=== PATIENT | female | born 1985 | race Caucasian/White ===

== ENCOUNTER 2023-03-19 08:57 | Emergency (ER) | payer MEDICAID ==
[~2023-03-19] VITALS: Ht 165.1 cm; Wt 64.8 kg
[~2023-03-19 08:57] MED LIST: ADV50250 IH; IPRA3AMP19 IH; LEVA15HF4 IH; LORA0.5T PO; PREN1TAB77 PO
[2023-03-19 09:18] VITALS: BP 149/102; PULSE 81; RESP 18; TEMP 98.3; O2SAT 98
[2023-03-19] MEDS ORDERED: ondansetron 4mg rapidly disintigrating tab PO ONE (09:35)
[2023-03-19] MEDS ORDERED: ketorolac trometh inj. 60 MG/2 ML VIAL IM ONE (09:35)
[2023-03-19] MEDS ORDERED: ONDA4TAB12 PO (09:53)
== END 2023-03-19 10:19 | disposition home or self-care (01) ==
LOC: ER 08:57
DX: G43.909 Migraine, unspecified, not intractable, without status migrainosus (principal); Z88.0 Allergy status to penicillin; Z88.8 Allergy status to other drugs, medicaments and biological substances; Z79.899 Other long term (current) drug therapy; Z79.1 Long term (current) use of non-steroidal anti-inflammatories (NSAID); Z79.2 Long term (current) use of antibiotics; Z56.0 Unemployment, unspecified
CPT/HCPCS: 96372; 99283; J1885

== ENCOUNTER 2023-07-10 07:29 | Emergency (ER) | payer MEDICAID ==
[~2023-07-10] VITALS: Ht 160 cm; Wt 67.2 kg
[~2023-07-10 07:29] MED LIST changes: +ONDA4TAB12 PO
[2023-07-10] MEDS ORDERED: GENT5DRO22 EACHEYE (08:36)
[2023-07-10 08:54] VITALS: BP 108/74; PULSE 76; RESP 18; TEMP 98.2; O2SAT 97
== END 2023-07-10 08:56 | disposition home or self-care (01) ==
LOC: ER 07:29
DX: H10.9 Unspecified conjunctivitis (principal); G43.909 Migraine, unspecified, not intractable, without status migrainosus; Z56.0 Unemployment, unspecified; Z88.0 Allergy status to penicillin; Z88.8 Allergy status to other drugs, medicaments and biological substances; Z79.899 Other long term (current) drug therapy
CPT/HCPCS: 99283

== ENCOUNTER 2025-02-10 22:37 | Emergency (ER) | payer MEDICAID ==
[~2025-02-10] VITALS: Ht 165.1 cm; Wt 63.2 kg
[~2025-02-10 22:37] MED LIST changes: +GEN0.3OS EACHEYE; +ONDA-243 PO; -ONDA4TAB12 PO
--- NOTE | 2025-02-11 00:38 | RADIOLOGY REPORT ---
EXAM: CT CT HEAD INDICATION: EYE PAIN TECHNIQUE: CT of the head without intravenous contrast. Radiation Dose Information: CT Dose: CTDI volume is 45.72 mGy. Dose-length product is 748.97 mGy*cm The dose indicators for CT are the volume Computed Tomography (CT) Dose Index (CTDIvol) and the Dose Length Product (DLP), and are measured in units of mGy and mGy-cm, respectively. These indicators are not patient dose, but values generated from the CT scanner acquisition factors. The report includes radiation exposure data for exposures received during this examination. COMPARISON: None FINDINGS: The evaluation is mildly degraded by motion artifact. The cerebral parenchyma appears to be normal configuration and attenuation. The ventricles, cisterns , and sulci appear age-appropriate. There is no evidence for acute territorial infarct, hemorrhage, or mass effect. The orbits are normal. The visualized paranasal sinuses and mastoid air cells are clear. The soft t issues and osseous structures appear within normal limits. IMPRESSION: 1. No acute territorial infarct, intracranial hemorrhage, or mass effect. If clinical symptoms persi st, MRI may be beneficial in further assessment.
--- NOTE | 2025-02-11 02:35 | Physician Documentation ---
History of Present Illness ~ Chief Complaint: Eye Pain Stated Complaint: EYE PAIN Time Seen by MD: 02:33 OK to notify your PCP?: Yes Primary Medical Doctor: EVANS RAZA Source: patient, RN/, RN notes reviewed, old records Mode of Arrival: POV Exam Limitations: no limitations HPI 39 year old female with a history of eye infections presents to the emergency room seen in bed 09 for complaints of pain in her left eye that began 3 days ago. She states that her left eye feels very uncomfortable as it feels like there is something in it and it is watering uncontrollably. Her left pupil is larger than her right and she states that her vision is incredibly blurry. Patient denies any other associated symptoms at this time. Patient denies any other alleviating or exacerbating factors. Medication Reconciliation Allergies: Coded Allergies: Penicillins (Unverified Allergy, Unknown, 02/10/25) methylergonovine maleate (Unverified Allergy, Unknown, 02/10/25) Scheduled Fluticasone/Salmeterol* (Advair 250-50 Diskus*), 1 INH IH DAILY, (Reported) Gentamicin Sulfate (Gentak), 1 DROP EACHEYE Q6H Ipratropium/Albuterol Sulfate (Duoneb 2.5-0.5 Mg/3 Ml Soln), 3 ML IH PRN, (Reported) Levalbuterol Tartrate* (Xopenex Inhaler*), 2 PUFF IH PRN, (Reported) Lorazepam* (Ativan*), 0.5 MG PO PRN, (Reported) Vits W-Ca,Fe,Fa(<1MG) ( Formula), 1 EACH PO DAILY, (Reported) Scheduled PRN ONDANSETRON ODT 4mg tablet (Ondansetron Odt), 1 TABLET PO Q6H PRN for nausea/vomiting Past Medical History Past Medical History: Migraine Past Surgical History: no surgical history Smoking Status: Unknown if ever smoked Alcohol Use: None Lives with: Family Lives In: Home Occupation: unemployed Review of Systems All Other Systems at this time: Reviewed and Negative ROS As stated above in the HPI, otherwise all systems are reviewed and negative. Physical Exam Vital Signs: RN Vital Signs have been reviewed: Yes, Temperature: 98.0, Heart Rate: 86, Respiratory Rate: 16, BP: 105/61, Pulse Oximetry: 97, Weight: 63.180 Oxygen Flow Rate: 0 Pulse Oximetry Reflects: adequate oxygenation Physical Exam General: The patient is well developed, well nourished, nontoxic appearing and is in no acute distress. Skin: [place], warm and dry with no rashes. HEENT: Pupils are reactive, left pupil is 4mm while right is 2mm. Head was normocephalic and atraumatic. Eyes - pupils equal, round, reactive to light and accommodation. Extraocular movements were intact. Conjunctivae were nonicteri c. Ears - bilateral tympanic membranes were normal. The mouth and oropharynx were clear with moist mucous membranes. There were no pharyngeal exudates or erythema. Neck: Supple and nontender. There was no jugular venous distention, lymphadenopathy, thyromegaly or masses. Chest: Clear to auscultation bilaterally without wheezes, rales or rhonchi. No accessory muscle use. No dullness to percussion. Heart: Rate regular and rhythmic. S1, S2. No murmurs. Palpation of the chest wall was normal. No rubs or thrills. Abdomen: Soft, nontender and nondistended. Positive bowel sounds. No guarding or rebound. No hepatosplenomegaly or palpable masses. Extremities: No cyanosis, clubbing or edema. The patient moves all extremities. Pulses were equal and symmetric. Neurologic: Cranial nerves II-XII were intact. Sensation was intact to light touch throughout. Motor strength was 5/5 in all four extremities. Deep tendon reflexes were intact in both upper and lower extremities. Psychologic: The patient was oriented to person, place and time. The patient demonstrated appropriate judgement and insight. Progress Results/Orders Results/Orders Vital Signs 02/10/25 02/10/25 02/11/25 02/11/25 22:43 23:01 00:27 02:09 Temp 98.0 Pulse 79 90 86 Resp 18 16 B/P (MAP) 152/85 105/68 (80) 105/61 (76) Pulse Ox 98 98 97 O2 Flow Rate 0 0 02/11/25 02/11/25 05:46 06:43 Pulse 82 76 Resp 18 16 B/P (MAP) 109/64 (79) 109/73 (85) Pulse Ox 97 96 O2 Flow Rate 0 0 Laboratory Tests Test 02/11/25 07:04 White Blood Count 6.5 Red Blood Count 4.46 Hemoglobin 12.8 Hematocrit 37.2 Mean Corpuscular Volume 83.4 Mean Corpuscular Hemoglobin 28.6 Mean Corpuscular Hemoglobin Concent 34.3 Red Cell Distribution Width 13.4 Platelet Count 227 Mean Platelet Volume 8.2 Neutrophils (%) (Auto) 56.9 Lymphocytes (%) (Auto) 28.5 Monocytes (%) (Auto) 9.4 Eosinophils (%) (Auto) 4.5 Basophils (%) (Auto) 0.7 Neutrophils # (Auto) 3.7 Lymphocytes # (Auto) 1.8 Monocytes # (Auto) 0.6 Eosinophils # (Auto) 0.3 Basophils # (Auto) 0.0 CBC Comment Erythrocyte Sedimentation Rate 9 Sodium Level 140 Potassium Level 3.7 Chloride Level 105 Carbon Dioxide Level 25.9 Anion Gap 9 Blood Urea Nitrogen 26 H Creatinine 0.80 Estimated GFR/1.73 m2 79 BUN/Creatinine Ratio 32.5 H Glucose Level 102 Calcium Level 8.7 Magnesium Level 2.3 Albumin 4.0 Procalcitonin < 0.05 Chemistry Comments EKG/XRAY/CT/US/VASC/MRI CT : Impression EXAM: CT CT HEAD INDICATION: EYE PAIN TECHNIQUE: CT of the head without intravenous contrast. Radiation Dose Information: CT Dose: CTDI volume is 45.72 mGy. Dose-length product is 748.97 mGy*cm The dose indicators for CT are the volume Computed Tomography (CT) Dose Index (CTDIvol) and the Dose Length Product (DLP), and are measured in units of mGy and mGy-cm, respectively. These indicators are not patient dose, but values generated from the CT scanner acquisition factors. The report includes radiation exposure data for exposures received during this examination. COMPARISON: None FINDINGS: The evaluation is mildly degraded by motion artifact. The cerebral parenchyma appears to be normal configuration and attenuation. The ventricles, cisterns, and sulci appear age-appropriate. There is no evidence for acute territorial infarct, hemorrhage, or mass effect. The orbits are normal. The visualized paranasal sinuses and mastoid air cells are clear. The soft tissues and osseous structures appear within normal limits. IMPRESSION: 1. No acute territorial infarct, intracranial hemorrhage, or mass effect. If clinical symptoms persist, MRI may be beneficial in further assessment. Electronically Signed by:NIKHIL TAYLOR MD Date & Time: 02/11/25 0036 Medical Decision Making Findings Patient signed out to me by Dr. Geronimo to follow up on CT results, possible op hthalmology consult for unilateral L eye pain, blurry vision, and anisocoria. I reexamined the patient and see no specific findings on fluorescein/sharma lamp exam (no uptake), ophthalmoscope (normal disc, cup, vessels), slit lamp (no flare, no floaters, no corneal defects). At this time I am diagnosing this patient with a uveitis/iritis of unclear etiology, though other possible di agnoses include optic neuritis. Will Rx predforte and have patient follow up with outpatient ophthalmology. Return precautions are discussed. Additional Comment Ddx = uveitis, iritis, optic neuritis, corneal abrasion or foreign bodies, glaucoma Departure Disposition: HOME / SELF CARE / HOMELESS Impression: Primary Impression: Anisocoria Condition: Stable Discharge Instructions: Medical Screening Exam Referrals: NO PRIMARY CARE PROVIDER (PCP) Prescriptions Prednisolone Acetate/Pf (Prednisolone Acet 1% Eye Drop) 1 % Drops.susp 1 DROP LEFTEYE BID for 5 Days, #5 ML 0 Refills Prov: AMITA LAW MD 02/11/25 Education Educated: Patient Educated regarding: diagnosis, treatment, prognosis, need for follow up Signature Scribe Signature: Scribed for Oswaldo Geronimo MD by Claudio Talbert . 02/11/25 02:51 Attestation: The note accurately reflects work and decisions made by me.Oswaldo Geronimo MD 02/11/25 02:35 OSWALDO GERONIMO MD Feb 11, 2025 02:35 CLAUDIO LEE Feb 11, 2025 02:51 AMITA LAW MD Feb 11, 2025 08:56
[2025-02-11] MEDS: pilocarpine 2% ophthalmic drops 15ml LEFTEYE ONE (03:00)
[2025-02-11] MEDS: proparacaine 0.5% ophthalmic drops 15ml LEFTEYE ONE (03:05)
[2025-02-11 07:24] LABS: BASOPHILS % (AUTO) 0.7 % (0-1); EOSINOPHILS # (AUTO) 0.3 X10'3 (0-0.9); EOSINOPHILS % (AUTO) 4.5 % (0-6); HEMATOCRIT 37.2 % (35.0-45.0); HEMOGLOBIN 12.8 g/dl (12.0-16.0); LYMPHOCYTES # (AUTO) 1.8 X10'3 (1.1-4.8); LYMPHOCYTES % (AUTO) 28.5 % (21-51); MEAN CORPUSCULAR HEMOGLOBIN 28.6 PG (27.0-31.0); MEAN CORPUSCULAR HGB CONC 34.3 g/dL (33.0-36.5); MEAN CORPUSCULAR VOLUME 83.4 FL (78-98); MEAN PLATELET VOLUME 8.2 FL (7.4-10.4); MONOCYTES # (AUTO) 0.6 X10'3 (0-0.9); MONOCYTES % (AUTO) 9.4 % (2-12); NEUTROPHILS # (AUTO) 3.7 X10'3 (1.8-7.7); NEUTROPHILS % (AUTO) 56.9 % (42-75); PLATELET COUNT 227 X10'3 (140-440); RED BLOOD COUNT 4.46 X10'6 (4.20-5.60); RED CELL DISTRIBUTION WIDTH 13.4 % (11.5-14.5); WHITE BLOOD COUNT 6.5 X10'3 (4.5-11.0)
[2025-02-11 07:36] LABS: ANION GAP 9 (8-16); BLOOD UREA NITROGEN 26 MG/DL (7-18); BUN/CREATININE RATIO 32.5 (10.0-20.0); CALCIUM 8.7 MG/DL (8.5-10.1); CHLORIDE 105 MMOL/L (99-107); GLUCOSE 102 MG/DL (70-104); MAGNESIUM 2.3 MG/DL (1.5-2.4); POTASSIUM 3.7 MMOL/L (3.5-5.1); SODIUM 140 MMOL/L (135-145); TOTAL CARBON DIOXIDE 25.9 MMOL/L (24-32); eCRCL 84 ML/MIN; eGFR 79 ML/MIN
[2025-02-11] MEDS ORDERED: PRED5DRO23 LEFTEYE (08:56)
[2025-02-11 09:05] VITALS: BP 99/63; PULSE 82; RESP 16; TEMP 98; O2SAT 98
== END 2025-02-11 09:06 | disposition home or self-care (01) ==
LOC: ER 22:38
DX: H57.02 Anisocoria (principal); Z88.0 Allergy status to penicillin; Z79.899 Other long term (current) drug therapy
CPT/HCPCS: 36415; 70450; 80048; 83735; 84145; 85025; 85651; 99285